=== PATIENT | female | born 1940 | race Caucasian/White ===

== ENCOUNTER → 2018-05-19 | Outpatient (CLI) | payer MEDICARE, BC | LOC: MHCPAIN 13:30 | DX: G89.29 Other chronic pain (principal); M47.817 Spondylosis without myelopathy or radiculopathy, lumbosacral region; M53.3 Sacrococcygeal disorders, not elsewhere classified; M41.9 Scoliosis, unspecified; G62.9 Polyneuropathy, unspecified | CPT/HCPCS: G0463 ==